=== PATIENT | female | born 1975 | race Caucasian/White ===

== ENCOUNTER 2020-10-22 08:46 | Emergency (ER) | payer OTHER ==
[2020-10-22 08:50] VITALS: BP 149/93; PULSE 65; RESP 16; TEMP 98.3
--- NOTE | 2020-10-22 09:07 | ED ---
General Adult HPI - General Chief complaint: Needlestick/Exposure Stated complaint: [facility]-needlestick Time Seen by Provider: 10/22/20 08:56 Source: patient, RN notes reviewed Mode of arrival: ambulatory Limitations: no limitations - History of Present Illness Initial comments: 45-year-old female presents emergency Department chief complaint of needlestick. Patient was performing ABG and which she states patient GERD, poked her left hand second digit. There was some blood within her glove. Patient up-to-date on her tetanus. Patient states she does know of any communicable diseases of the patient - Related Data Allergies Allergy/AdvReac Type Severity Reaction Status Date / Time No Known Allergies Allergy Verified 10/22/20 08:48 Review of Systems ROS Statement: Those systems with pertinent positive or pertinent negative responses have been documented in the HPI. ROS Other: All systems not noted in ROS Statement are negative. Past Medical History Past Medical History: No Reported History History of Any Multi-Drug Resistant Organisms: None Reported Past Surgical History: Section Past Psychological History: No Psychological Hx Reported Smoking Status: Never smoker Past Alcohol Use History: Occasional Past Drug Use History: None Reported General Exam Limitations: no limitations General appearance: alert, in no apparent distress Respiratory exam: Present: normal lung sounds bilaterally. Absent: respiratory distress, wheezes, rales, rhonchi, stridor Cardiovascular Exam: Present: regular rate, normal rhythm, normal heart sounds. Absent: systolic murmur, diastolic murmur, rubs, gallop, clicks Extremities exam: Present: other (Left hand second digit small puncture wound noted) Course Vital Signs 10/22/20 08:48 Temperature 98.3 F Pulse Rate 65 Respiratory 16 Rate Blood Pressure 149/93 O2 Sat by Pulse 98 Oximetry Medical Decision Making - Medical Decision Making Patient will have rapid HIV along with other subject. Patient will not start HIV prophylaxis unless positive. Disposition Clinical Impression: Needlestick injury accident Disposition: HOME SELF-CARE Condition: Stable Instructions (If sedation given, give patient instructions): Needle Stick Injuries (ED) Additional Instructions: Please return to the Emergency Department if symptoms worsen or any other concerns. Is patient prescribed a controlled substance at d/c from ED?: No Referrals: Rocco Huang MD [Primary Care Provider] - 1-2 days Time of Disposition: 09:07
== END 2020-10-22 09:32 | disposition home or self-care (01) ==
LOC: EC 08:46
DX: S61.432A Puncture wound without foreign body of left hand, initial encounter (principal); W46.1XXA Contact with contaminated hypodermic needle, initial encounter; Y92.89 Other specified places as the place of occurrence of the external cause; Y99.0 Civilian activity done for income or pay
CPT/HCPCS: 99282